=== PATIENT | female | born 2000 | race American Indian/Alaskan Native ===

== ENCOUNTER 2025-06-18 20:33 | Inpatient (IN) | payer MEDICAID ==
[2025-06-18] MEDS ORDERED: Carboprost Tromethamine 250 MCG/1 mL Vial IM PRN (22:57)
[2025-06-18] MEDS ORDERED: Nalbuphine HCl 10 MG/ 1ML Amp IM PRN (22:57)
[2025-06-18] MEDS ORDERED: fentaNYL 100 MCG/2 ML SDV IVPUSH PRN (22:57)
[2025-06-18] MEDS ORDERED: Sodium Chloride 0.9% 10 ML Syringe FLUSH PRN (22:57)
[2025-06-18] MEDS ORDERED: Lactated Ringers 1,000 ML IV SCH (23:00)
[2025-06-18] MEDS ORDERED: Oxytocin/Lactated Ringers 30 UNIT/500 ML BAG IV SCH (23:00)
[2025-06-18 23:27] LABS: PLATELET COUNT,PLT 303.0 10^3/uL (150-450); RED BLOOD CELL COUNT 4.52 10^6/uL (4.2-5.4); WHITE BLOOD CELL COUNT,WBC 15.1 10^3/uL (5.0-10.0)
[2025-06-19] MEDS: Lactated Ringers 1,000 ML IV ONE (00:04)
[2025-06-19] MEDS: Ondansetron 4 MG/2 ML SDV IVPUSH PRN (00:04)
[2025-06-19] MEDS: Oxytocin/Normal Saline 30 UNIT/500 ML BAG IV SCH (01:32)
[2025-06-19] MEDS ORDERED: Sodium Chloride 0.9% 10 ML Syringe FLUSH PRN (02:16)
[2025-06-19] MEDS ORDERED: Oxytocin 10 Units/1 ML SDV IM PRN (02:16)
[2025-06-19] MEDS ORDERED: Carboprost Tromethamine 250 MCG/1 mL Vial IM PRN (02:16)
[2025-06-19] MEDS: Witch Hazel Medicated Pads 100/Jar TOP PRN (02:54)
[2025-06-19] MEDS: Benzocaine/Menthol 20%-0.5% Spray 78 GM Cannister TOP PRN (02:55)
[2025-06-19] MEDS: Prenatal Multivitamin with Calcium/Folic Acid/Iron Tab PO SCH (09:46)
[2025-06-19] MEDS: Measles, Mumps & Rubella Vaccine 0.5 ML SDV SUBCUT ONE (18:06)
== END 2025-06-20 11:33 | disposition home or self-care (01) | DRG 807 ==
LOC: DL.OBCHECK 20:33 → DL.OB 22:57 → OBSVTOIN 06-19 01:28
PROVIDERS: ADMIT Family Medicine; ATTEND Family Medicine
PROC: 3E033VJ Introduction of Other Hormone into Peripheral Vein, Percutaneous Approach (ICD-10-PCS; principal; 2025-06-19)
PROC: 0KQM0ZZ Repair Perineum Muscle, Open Approach (ICD-10-PCS; principal; 2025-06-19)
PROC: 10E0XZZ Delivery of Products of Conception, External Approach (ICD-10-PCS; principal; 2025-06-19)
DX: O41.03X0 Oligohydramnios, third trimester, not applicable or unspecified (principal); Z37.0 Single live birth; Z3A.39 39 weeks gestation of pregnancy; O77.0 Labor and delivery complicated by meconium in amniotic fluid; O70.1 Second degree perineal laceration during delivery; O99.02 Anemia complicating childbirth; F17.200 Nicotine dependence, unspecified, uncomplicated
CPT/HCPCS: 36415; 59409; 85027; 90471; 90707; A9270-GY; J2003; J2405; J2590; J7120